=== PATIENT | female | born 2000 | race Caucasian/White ===

== ENCOUNTER → 2022-04-02 | Outpatient (CLI) | payer BC ==
[~2022-04-02] MED LIST: CATHETER FLUSH 10 ML SYR IV PRN; HOLD METFORMIN - RECEIVED CONTRAST 20 ML VIAL IV SCH; IOHEXOL 350 MG/ML 100 ML (OMNIPAQUE 350) VIAL IV ONE; NS 100 ML (IVPB) BAG IV ONE
--- NOTE | 2022-04-02 13:25 | Diagnostic Imaging Report ---
PROCEDURE: CT head with and without contrast. TECHNIQUE: Multiple contiguous axial images were obtained through the brain before and after the administration of intravenous contrast. Auto Exposure Controls were utilized during the CT exam to meet ALARA standards for radiation dose reduction. INDICATION: Headache. COMPARISON: No prior studies are available for comparison. FINDINGS: The ventricles and sulci are within normal limits. No sulcal effacement or midline shift is identified. No acute intra-axial or extra-axial hemorrhage is detected. No abnormal enhancement following contrast administration is identified. Visualized paranasal sinuses demonstrate significant mucosal thickening in bilateral maxillary sinuses as well as multiple ethmoid air cells. There is some mucosal thickening of the frontal sinus. The sphenoid is well aerated. Mastoid air cells are well aerated. IMPRESSION: 1. Paranasal sinus mucosal disease. 2. Otherwise, unremarkable pre and post contrast CT of the brain. Dictated by: Dictated on workstation # [id number]
--- NOTE | 2022-04-02 14:10 | Diagnostic Imaging Report ---
INDICATION: History of aortic stent in 2017, history of coarctation of the aorta. TECHNIQUE: Multiple contiguous axial images were obtained through the chest after uneventful bolus administration of intravenous contrast. 3D reconstructed CTA MIP acquisitions were also performed. Auto Exposure Controls were utilized during the CT exam to meet ALARA standards for radiation dose reduction. COMPARISON: Comparison made with 12/25/2019. FINDINGS: The pulmonary parenchymal vessels show no overt filling defects to suggest pulmonary emboli. Thoracic stent is seen in the proximal descending aorta at the site of previous coarctation. The stent is patent with no significant thrombus or in-stent restenosis. The great vessel origins are patent and without stenosis. There are no enlarged mediastinal or hilar nodes. There are no enlarged axillary nodes or chest wall masses. There is no pleural or pericardial fluid. Visualized portions of the upper abdomen were normal. Lung parenchymal windows demonstrate no focal infiltrates or nodules. IMPRESSION: Stent remains in place in the proximal descending aorta at the site of previous coarctation. The stent is widely patent with no restenosis. No focal abnormality is otherwise seen. Dictated by: Dictated on workstation # [id number]
== END ==
LOC: CARD 12:15
PROVIDERS: ATTEND Internal Medicine Cardiovascular Disease
DX: J34.89 Other specified disorders of nose and nasal sinuses (principal); Z87.74 Personal history of (corrected) congenital malformations of heart and circulatory system
CPT/HCPCS: 70470; 71275; C8929; 93306

== ENCOUNTER → 2022-04-14 | Outpatient (CLI) | payer BC ==
[2022-04-14 11:55] LABS: BASOPHILS % (AUTO) 0 % (0-10); EOSINOPHILS # (AUTO) 0.2 10^3/uL (0.0-0.3); EOSINOPHILS % (AUTO) 2 % (0-10); HEMATOCRIT 38 % (35-52); HEMOGLOBIN 12.6 g/dL (11.5-16.0); LYMPHOCYTES # (AUTO) 3.3 10^3/uL (1.0-4.0); LYMPHOCYTES % (AUTO) 33 % (12-44); MEAN CORPUSCULAR HEMOGLOBIN 29 pg (25-34); MEAN CORPUSCULAR HGB CONC 33 g/dL (32-36); MEAN CORPUSCULAR VOLUME 88 fL (80-99); MEAN PLATELET VOLUME 9.5 fL (9.0-12.2); MONOCYTES # (AUTO) 0.6 10^3/uL (0.0-1.0); MONOCYTES % (AUTO) 6 % (0-12); NEUTROPHILS # (AUTO) 5.9 10^3/uL (1.8-7.8); NEUTROPHILS % (AUTO) 59 % (42-75); PLATELET COUNT 288 10^3/uL (130-400)
[2022-04-14 12:06] LABS: ALBUMIN 4.1 GM/DL (3.2-4.5)
[2022-04-14 12:07] LABS: POTASSIUM 4.2 MMOL/L (3.6-5.0)
[2022-04-14 12:08] LABS: CALCIUM 9.8 MG/DL (8.5-10.1)
[2022-04-14 12:09] LABS: TOTAL PROTEIN 7.2 GM/DL (6.4-8.2)
[2022-04-14 12:10] LABS: ERYTHROCYTE SEDIMENTATION RATE 20 MM/HR (0-20)
[2022-04-14 12:11] LABS: BILIRUBIN,TOTAL 0.4 MG/DL (0.1-1.0)
[2022-04-14 12:13] LABS: CREATININE SERUM 0.84 MG/DL (0.60-1.30)
== END ==
LOC: LAB 11:20
PROVIDERS: ATTEND Internal Medicine Cardiovascular Disease
DX: R51.9 Headache, unspecified (principal); Z87.74 Personal history of (corrected) congenital malformations of heart and circulatory system
CPT/HCPCS: 36415; 80053; 84443; 85025; 85652; 86141